=== PATIENT | female | born 1995 | race Caucasian/White ===

== ENCOUNTER 2018-11-11 07:52 | Emergency (ER) | payer OTHER ==
[~2018-11-11] VITALS: Ht 157.5 cm; Wt 88.5 kg
[~2018-11-11 07:52] MED LIST: FERRO-TIME325 MG PO; TIGAN300 MG
== END 2018-11-11 10:46 | disposition home or self-care (01) ==
LOC: ER 07:52
DX: K29.70 Gastritis, unspecified, without bleeding (principal)

== ENCOUNTER → 2021-04-08 | Emergency (ER) | payer OTHER ==
[~2021-04-08] VITALS: Ht 157.5 cm; Wt 88.5 kg
[~2021-04-08] MED LIST changes: +NORFLEX100MG PO
== END | disposition home or self-care (01) ==
LOC: ER 15:40
DX: M79.18 Myalgia, other site (principal)

== ENCOUNTER 2022-12-26 17:12 | Emergency (ER) | payer OTHER ==
[~2022-12-26] VITALS: Ht 157.5 cm; Wt 73.5 kg
[2022-12-26] MEDS ORDERED: PAXLOVID 300-11 EACH PO (21:39)
== END 2022-12-26 21:51 | disposition home or self-care (01) ==
LOC: ER 17:12
DX: U07.1 COVID-19 (principal)

== ENCOUNTER 2023-08-31 20:21 | Inpatient (IN) | payer OTHER ==
[~2023-08-31] VITALS: Ht 157.5 cm; Wt 63.5 kg
[~2023-08-31 20:21] MED LIST changes: +PAXLOVID 300-11 EACH PO
--- NOTE | 2023-08-31 21:14 | NUR ---
SE RECIBE PTE ALERTA Y ORIENTADA X3 LA CUAL REFIERE VENIR POR DOLOR EN FLANCO DERECHO DESDE HACE 3 COY. PTE REFIERE VOMITOS X2 CATIE EL RICHELLE DE MARCIAL. SE MIDEN S/V Y SE COLOCA EN ELMA A PTE.
[2023-09-01] MEDS ORDERED: KETOROLAC TROMETHAMINE 60 MG VIAL IM STA (00:33)
[2023-09-01] MEDS ORDERED: MEPERIDINE HCL/PF 50 MG/ML VIAL IM STA (00:33)
[2023-09-01] MEDS ORDERED: PROMETHAZINE HCL 50 MG/ML AMPUL IM STA (00:34)
[2023-09-01] MEDS ORDERED: HYOSCYAMINE SULFATE 0.125 MG TAB.SUBL SL STA (00:36)
[2023-09-01] MEDS ORDERED: TAMSULOSIN HCL 0.4 MG CAP PO STA (00:37)
--- NOTE | 2023-09-01 01:15 | NUR ---
PTE. ALERTA Y ORIENTADA X3. SE ORIENTA SOBRE TX MEDICO Y REFIERE ENTENDER. SE UBICA EN ELMA CON BARANDAS ELEVADAS POR PATEL SEGURIDAD. SE REALIZAN MUESTRAS DE LAB BAJO MEDIDAS ASEPTICAS Y SE ENVIAN. SE ADMINISTRAN MEDICAMENTOS LUCAS ORDEN MEDICA Y BAJO MEDIDAS ASEPTICAS. PACIENTE REFIERE AL MOMENTO NO DESEAR EL PHENERGAN Y DEMEROL.
[2023-09-01 01:38] LABS: CALCIUM 9.6 mg/dL (8.5-10.1); CREATININE SERUM 0.69 mg/dL (0.55-1.02); GFR 99.9; HEMATOCRIT 32.6 % (36.0-45.00); HEMOGLOBIN 10.3 g/dL (12.0-15.00); MEAN CORPUSCULAR HEMOGLOBIN 21.1 pg (27.00-32.0); MEAN CORPUSCULAR HGB CONC 31.6 g/dl (32.0-36.0); PLATELET COUNT 284 K/uL (150-450); POTASSIUM 3.56 mEq/L (3.5-5.1); RED BLOOD COUNT 4.87 M/uL (4.00-6.00); RED CELL DISTRIBUTION WIDTH 20.3 % (11.5-14.5)
[2023-09-01 01:44] LABS: PH,URINE 5.5 (5.0-8.0); URINE APPEARANCE Turbid; URINE BILIRRUBIN Negative (NEGATIVE); URINE BLOOD Small; URINE COLOR Yellow; URINE GLUCOSE Negative (NEGATIVE); URINE LEUKOCYTE Moderate; URINE NITRATE Negative
[2023-09-01 01:48] LABS: URINE RBC 8.6 uL (0.0-20.8); URINE WBC 3357.7 uL (0.0-23.2)
[2023-09-01 02:11] LABS: URINE EPITHELIAL CELLS > 201.7 uL (0.0-38.8); URINE PROTEIN 100 (NEGATIVE)
[2023-09-01 02:13] LABS: URINE BACTERIA > 1933 uL (0.0-1933)
[2023-09-01 02:14] LABS: URINE MUCUS SCANT
[2023-09-01] MEDS ORDERED: CIPROFLOXACIN IN 5 % DEXTROSE 400 MG/200 ML PIGGYBAG IV STA (04:06)
--- NOTE | 2023-09-01 06:21 | NUR ---
SE NOTIFICA SONOGRAMA PENDIENTE.
[2023-09-01] MEDS ORDERED: RINGERS SOLUTION,LACTATED 1,000 ML IV STA (06:40)
[2023-09-01] MEDS ORDERED: ONDANSETRON HCL 2 MG/ML VIAL IV STA (06:40)
--- NOTE | 2023-09-01 07:11 | NUR ---
PACIENTE ALERTA Y ORIENTADA X3 EN CAMA BAJA Y BARANDAS ELEVADAS. CANALIZADA EN LA MANO DERECHA PATENTE Y SHELDON DE EDEMA Y ERITEMAS. SE SAKSHI S/V Y ESTA PENDIENTE A SONOGRAMA PELVICO.
--- NOTE | 2023-09-01 09:50 | NUR ---
SE SAKSHI MUESTRAS DE LAB BAJO MEDIDAS ASEPTCAS POR LA BELL.
[2023-09-01] MEDS ORDERED: ONDANSETRON HCL 2 MG/ML VIAL IV PRN (10:00)
[2023-09-01] MEDS ORDERED: MEPERIDINE HCL/PF 25 MG/ML VIAL IV PRN (10:00)
[2023-09-01 10:35] LABS: INR 0.98; PARTIAL THROMBOPLASTIN TIME 24.8 SECONDS (22.0-34.0); PROTHROMBIN TIME 10.3 SECONDS (9.0-11.5)
[2023-09-01] MEDS ORDERED: PIPERACILLIN/TAZOBACTAM SODIUM 3.375 GM VIAL IV SCH (12:00)
[2023-09-02] MEDS ORDERED: MORPHINE SULFATE 4 MG/ML CARTRIDGE IV SCH (17:00)
[2023-09-02] MEDS ORDERED: PIPERACILLIN/TAZOBACTAM SODIUM 3.375 GM VIAL IV ONE (18:43)
[2023-09-02] MEDS ORDERED: PROMETHAZINE HCL 50 MG/ML AMPUL ONE (18:51)
[2023-09-03 01:23] LABS: HEMATOCRIT 29.3 % (36.0-45.00); MEAN CORPUSCULAR HGB CONC 31.3 g/dl (32.0-36.0); PLATELET COUNT 230 K/uL (150-450); RED BLOOD COUNT 4.44 M/uL (4.00-6.00)
[2023-09-03 01:28] LABS: HEMOGLOBIN 9.2 g/dL (12.0-15.00); MEAN CELL VOLUME 65.9 fL (80.00-100.00); MEAN CORPUSCULAR HEMOGLOBIN 20.7 pg (27.00-32.0)
[2023-09-03] MEDS ORDERED: METOCLOPRAMIDE HCL 5 MG/ML VIAL IV SCH (09:46)
== END 2023-09-06 14:49 | disposition home or self-care (01) | DRG 331 ==
LOC: ER 20:21 → SURH 09-01 10:51
PROVIDERS: General Practice; Surgery; ADMIT Internal Medicine; ATTEND Internal Medicine
PROC: 0DTJ4ZZ Resection of Appendix, Percutaneous Endoscopic Approach (ICD-10-PCS; 2023-09-02)
PROC: 0DBH4ZZ Excision of Cecum, Percutaneous Endoscopic Approach (ICD-10-PCS; 2023-09-02)
PROC: 0DBH4ZZ Excision of Cecum, Percutaneous Endoscopic Approach (ICD-10-PCS; principal; 2023-09-02 15:30)
DX: K37 Unspecified appendicitis (principal); K63.9 Disease of intestine, unspecified

== ENCOUNTER 2024-05-09 15:07 | Emergency (ER) | payer OTHER ==
[~2024-05-09] VITALS: Ht 157.5 cm; Wt 681.7 kg
[2024-05-09] MEDS ORDERED: DEXAMETHASONE SODIUM PHOSPHATE 4 MG/ML VIAL IM STA (19:14)
[2024-05-09] MEDS ORDERED: ORPHENADRINE CITRATE 30 MG/ML AMPUL IM SCH (19:16)
[2024-05-09] MEDS ORDERED: KETOROLAC TROMETHAMINE 30 MG VIAL IM STA (19:17)
== END 2024-05-09 21:29 | disposition home or self-care (01) ==
LOC: ER 15:09
DX: M25.561 Pain in right knee (principal)
CPT/HCPCS: 73560; 96372; 99283; J1100; J1885; J2360

== ENCOUNTER 2024-11-14 18:00 | Emergency (ER) | payer OTHER ==
[~2024-11-14] VITALS: Ht 154.9 cm; Wt 68.0 kg
[2024-11-14 20:21] LABS: COVID-19 AG NEGATIVE (NEGATIVE); INFLUENZA A AG NEGATIVE (NEGATIVE)
== END 2024-11-14 20:47 | disposition home or self-care (01) ==
LOC: ER 19:43
PROVIDERS: General Practice
DX: J06.9 Acute upper respiratory infection, unspecified (principal); Z20.822 Contact with and (suspected) exposure to COVID-19